=== PATIENT | female | born 1950 | race Caucasian/White ===

== ENCOUNTER 2016-09-20 02:34 | Inpatient (IN) | payer OTHER, MEDICAID ==
[~2016-09-20] VITALS: Ht 152.4 cm; Wt 73.7 kg
--- NOTE | 2016-09-20 02:50 | NUR ---
REC'D A 66 Y/O F BIB FAMILY FOR C/C OF EPIGASTRIC ABD PAIN THAT BEGAN AT 0100. PT STS X4 EPISODES OF VOMITING. PT SPEAKS SOFTLY IN CLEAR AND COMPLETE SENTENCES, RESPIRATIONS EVEN AND UNLABORED. AAOX4. NAD. MSE COMPLETED BY DR RUIZ.
--- NOTE | 2016-09-20 03:07 | NUR ---
XRAY AT BEDSIDE.
[2016-09-20 03:12] LABS: CALCIUM 8.5 mg/dL (8.5-10.1); CARBON DIOXIDE 32.4 mmol/L (21-32); CHLORIDE SERUM 107 mmol/L (98-107); CREATININE SERUM 0.7 mg/dL (0.6-1.0); GFR1 > 60 mL/min; GLUCOSE SERUM 140 mg/dL (74-106); POTASSIUM SERUM 3.5 mmol/L (3.5-5.1); SODIUM SERUM 145 mmol/L (136-145)
[2016-09-20 03:15] LABS: BASOPHIL % 1.5 % (0-2); PLATELET COUNT 196 x10^3mcL (130-400); RED CELL DISTRIBUTION WIDTH 12.6 % (11.5-14.5)
[2016-09-20 03:17] LABS: ALBUMIN 3.6 g/dL (3.4-5.0); ALKALINE PHOSPHATASE 83 U/L (46-116); ALT/SGPT 32 U/L (14-59); AST/SGOT 31 U/L (15-37)
[2016-09-20 03:21] LABS: AMYLASE 381 U/L (25-115); LIPASE 6062 IU/L (73-393)
--- NOTE | 2016-09-20 04:22 | NUR ---
AWOKE PT TO ASK HOW SHE IS FEELING AND PT STS "BETTER."
--- NOTE | 2016-09-20 05:27 | NUR ---
MEDICATED PT ORDERED, SEE EMAR.
--- NOTE | 2016-09-20 05:36 | NUR ---
XRAY AT BEDSIDE.
--- NOTE | 2016-09-20 06:16 | NUR ---
ATTEMPTED TO GIVE REPORT TO MED SURG AND WAS INFORMED THERE IS NO NURSE THAT I COULD GIVE REPORT TOO AND THAT ED DAY SHIFT WILL HAVE TO GIVE REPORT.
--- NOTE | 2016-09-20 07:04 | NUR ---
PT REPORT GIVEN TO LUIS DANIEL CHARGE NURSE.
--- NOTE | 2016-09-20 07:15 | NUR ---
RECEIVED PT FROM NIGHT NURSE. PT AWAKE AOX4, RESP EVEN AND UNLABORED, RA. VS STABLE. NAD NOTED. PT DAUGHTER AT BEDSIDE
[2016-09-20 07:21] LABS: CHOLESTEROL/HDL RATIO 3.9; MAGNESIUM 2.3 mg/dL (1.8-2.4); PHOSPHOROUS 4.5 mg/dL (2.5-4.9)
[2016-09-20 07:27] LABS: T3 TOTAL 1.33 ng/mL
[2016-09-20 07:32] LABS: FREE T4 0.92 ng/dL (0.76-1.46); FREE THYROXINE INDEX 2.3 ug/dL (1.4-4.5); T4(THYROXINE) 7.3 ug/dL (4.7-13.3)
--- NOTE | 2016-09-20 07:55 | NUR ---
RECEIVED PT FROM ED. AAOx4; DANISH SPEAKING: DISPLAYS GENERALIZED WEAKNESS; AMBULATORY; ON ROOM SATTING AT 97%; C/O ABDOMINAL PAIN; IV TO THE LAC 22G PATENT AND FLUSHING WELL WITHOUT PAIN; ON TELE #[address] HR 124; LAST REPORTED BM WAS 09/19/16, STOOL WAS REGULAR; SKIN INTACTED; GOOD CIRCULATION WITH NO APPARENT EDEMA NOTED; CALM AND COOPERATIVE; CALL LIGHT WITHIN REACH. ENCOURAGED TO CALL FOR ASSISTANCE WHEN NEEDED. WILL CONTINUE TO MONITOR
[2016-09-20 07:58] VITALS: BP 127/70
[2016-09-20 11:17] LABS: UA SPECIFIC GRAVITY 1.015 (1.005-1.035); microscopic required? YES; urine erythrocyte NEGATIVE (NEGATIVE)
[2016-09-20 11:30] LABS: AMPHETAMINE QUAL UR NONE DETECTED (NEG <=1000)
--- NOTE | 2016-09-20 13:10 | NUR ---
PT LEFT FOR PROCEDURE. PT WAS SALINE LOCKED. CONSENT WAS SIGNED WITH SERGEANT OF OFFICERS PHONE AND CHECKLIST COMPLETED. REPORT WAS GIVEN TO O.R. NURSE. WILL CONTINUE TO MONITOR
[2016-09-20 13:48] VITALS: BP 121/44
--- NOTE | 2016-09-20 15:29 | NUR ---
PT RETURNED FROM PROCEDURE. STILL LETHARGIC. LATEST VITALS: BP 115/63 MAP 86, HR 75, O2SAT 95 ON 2L, TEMP 98.4, RESP 16. 4 BAND AIDS TO THE ABD WITH VINNIE IN PLACE WITH APPROXIMATELY 10ML OF SEROSANGINOUS DRAINAGE. IV ABX STARTED AND INFUSING WELL. FAMILY AT BEDSIDE. CALL LIGHT WITHIN REACH. WILL CONTINUE TO MONITOR
[2016-09-20 16:52] VITALS: BP 115/63
--- NOTE | 2016-09-20 18:18 | NUR ---
PT RESTING IN BED EYES CLOSED. STILL SLIGHTLY LETHARGIC. FAMILY AT BEDSIDE. IV FLUIDS REFRESHED AND INFUSING WELL. NO APPARENT SIGNS OF ACUTE DISTRESS NOTED AT THIS TIME. CALL LIGHT WITHIN REACH. WILL CONTINUE TO MONITOR
--- NOTE | 2016-09-20 20:15 | NUR ---
PATIENT ASLEEP IN BED BUT EASILY AROUSABLE TO NAME CALLING. YAKUT SPEAKING ONLY. RESPIRATION EVEN AND UNLABORED, ON ROOM AIR. ONGOING 0.9% NS AT 130 CC/HR INFUSING WELL AT THE LEFT ANTECUBITAL AREA. S/P LAP CHOLECYSTECTOMY TODAY, SURGICAL INCISION TO ABDOMEN COVERED WITH BANDAID X4, VINNIE DRAIN TO RT SIDE INTACT WITH SEROSANGUINOUS DRAINAGE. VENOUS ULCER TO L INTERIOR FOOT COVERED WITH D/I DRESSING. GENERALIZED WEAKNESS NOTED. VOIDING FREELY WITHOUT DIFFICULTY. DENIES PAIN AT THIS TIME. ON TELE #38. WILL CONTINUE TO MONITOR.
[2016-09-20 21:29] VITALS: BP 119/61
[2016-09-21 06:20] VITALS: BP 121/68
[2016-09-21 06:29] LABS: BASOPHIL % 0.3 % (0-2); PLATELET COUNT 151 x10^3mcL (130-400); RED CELL DISTRIBUTION WIDTH 13.5 % (11.5-14.5)
[2016-09-21 06:35] LABS: CALCIUM 8.4 mg/dL (8.5-10.1); CARBON DIOXIDE 20.6 mmol/L (21-32); CHLORIDE SERUM 110 mmol/L (98-107); CREATININE SERUM 0.8 mg/dL (0.6-1.0); GFR1 > 60 mL/min; GLUCOSE SERUM 116 mg/dL (74-106); PHOSPHOROUS 3.8 mg/dL (2.5-4.9); POTASSIUM SERUM 4.2 mmol/L (3.5-5.1); SODIUM SERUM 143 mmol/L (136-145)
[2016-09-21 06:38] LABS: AMYLASE 388 U/L (25-115)
--- NOTE | 2016-09-21 06:40 | NUR ---
PATIENT DOZING ON AND OFF. RESPIRATION EVEN AND UNLABORED. IV SITE NO SIGN OF INFILTRATION. ASSISTED WITH NEEDS. SAFETY OBSERVED. PLACED CALL LIGHT WITHIN REACH AT ALL TIMES. VINNIE DRAIN INTACT.
[2016-09-21 07:35] LABS: LIPASE 4914 IU/L (73-393)
--- NOTE | 2016-09-21 08:00 | NUR ---
RECEIVED PT IN BED ALERT AND ORIENTED X4. BREATHING EVEN AND UNLABORED ON O2 VIA NC AT 2L, NO SOB, ENCOURAGED USE OF INCENTIVE SPIROMETER. DENIES N/V/D. REPORTS PAIN TO OPERATIVE SITE RATED 7/10 ESPECIALLY WITH MOVEMENT. VOIDS FREELY. GENERALIZED WEAKNESS. ENCOURAGED TO AMBULATE. WILL MEDCIATE WITH NORCO ORDERED. INCISIONS TO ABD X4 WITH BANDAIDS CDI. VINNIE DRAIN TO RLQ WITH SEROSANGUINOUS OUTPUT. INSTRUCTED TO USE CALL LIGHT WHEN IN NEED OF ANY ASSISTANCE.
--- NOTE | 2016-09-21 08:30 | NUR ---
NORCO PO GIVEN FOR PTS REPORTS OF PAIN TO R HIP WITH MOVEMENT.
[2016-09-21 08:38] VITALS: BP 113/57
--- NOTE | 2016-09-21 10:30 | NUR ---
PT AMBULATING IN HALLWAY ACCOMPANIED BY FAMILY.
[2016-09-21 13:38] VITALS: BP 116/50
[2016-09-21 17:20] VITALS: BP 126/63
--- NOTE | 2016-09-21 18:20 | NUR ---
PT IS SITTING UPRIGHT IN BED. AMBULATED WITH ASSISTANCE. VINNIE DRAIN EMPTIED OF 50ML OF SEROSANGUINOUS FLUID. VOIDS FREELY. REPORTS HEADACHE DECLINES PHARMACOLOGICAL INTERVENTIONS. DENIES PASSING GAS. FAMILY VISITING AT BEDSIDE. WILL CONTINUE TO MONITOR.
--- NOTE | 2016-09-21 19:52 | NUR ---
RECEIVED PT FROM PREVIOUS SHIFT. PT A/OX4. FAMILY AT BEDSIDE. NO ACUTE DISTRESS. IV PATENT AND INFUSING WELL WITH NO S/S OF INFILTRATION. BANDAIDS X4 TO ABD S/P LAP CIPRIANO- CDI. VINNIE DRAIN TO ABD WITH SEROSANGUINOUS DRAINAGE. CALL LIGHT WITHIN REACH, BED IN LOW POSITION. WILL CONTINUE TO MONITOR.
[2016-09-21 20:57] VITALS: BP 117/65
--- NOTE | 2016-09-22 00:31 | NUR ---
PT RESTING AT THIS TIME IN NO ACUTE DISTRESS. RR EVEN AND UNLABORED. IV PATENT AND INFUSING WELL WILL NO S/S OF INFILTRATION. CALL LIGHT WITHIN REACH, BED IN LOW POSITION, WILL CONTINUE TO MONITOR.
[2016-09-22 05:59] VITALS: BP 137/69
[2016-09-22 06:29] LABS: CALCIUM 8.1 mg/dL (8.5-10.1); CARBON DIOXIDE 28.1 mmol/L (21-32); CHLORIDE SERUM 106 mmol/L (98-107); CREATININE SERUM 0.7 mg/dL (0.6-1.0); GFR1 > 60 mL/min; GLUCOSE SERUM 114 mg/dL (74-106); MAGNESIUM 1.8 mg/dL (1.8-2.4); PHOSPHOROUS 2.2 mg/dL (2.5-4.9); POTASSIUM SERUM 3.7 mmol/L (3.5-5.1); SODIUM SERUM 139 mmol/L (136-145)
--- NOTE | 2016-09-22 07:25 | NUR ---
RECEIVED PT LAYING IN BED ASLEEP. NO APPARENT SIGNS OF ACUTE DISTRESS NOTED. INFORMATION BOARD UPDATED. IV SITE PATENT AND INFUSING WELL. VINNIE DRAIN INTACT. CALL LIGHT WITHIN REACH. WILL CONTINUE TO MONITOR
[2016-09-22 07:32] LABS: BASOPHIL % 0.1 % (0-2); PLATELET COUNT 129 x10^3mcL (130-400); RED CELL DISTRIBUTION WIDTH 13.7 % (11.5-14.5)
[2016-09-22 08:43] VITALS: BP 113/66; BP 149/74
--- NOTE | 2016-09-22 09:38 | NUR ---
PT RESTING IN BED EYES CLOSED. FAMILY AT BEDSIDE. NO APPARENT SIGNS OF ACUTE DISTRESS NOTED. IV INFUSINS WELL. CALL LIGHT WITHIN REACH. WILL CONTINUE TO MONITOR
[2016-09-22] MEDS ORDERED: ACETAMINOPHEN-H1 TA1 PO (10:29)
[2016-09-22] MEDS ORDERED: COLACE100 MG PO (10:30)
[2016-09-22] MEDS ORDERED: MOT800 PO (10:30)
[2016-09-22] MEDS ORDERED: LAC PO (10:31)
[2016-09-22] MEDS ORDERED: KEFLEX250 M1 PO (10:31)
--- NOTE | 2016-09-22 12:17 | NUR ---
PT O2 SAT WITHOUT 2L NC 90%. DR. BURGER AWARE
[2016-09-22 13:04] VITALS: BP 149/74
[2016-09-22 13:25] VITALS: BP 134/62
--- NOTE | 2016-09-22 13:45 | NUR ---
WENT OVER PT TEACHNG AND DISCHARGE INSTRUCTIONS. PT DENIES PAIN. NO APPARENT SIGNS OF ACUTE DISTRESS NOTED AT TIME OF DEPARTURE. IV ACCESS REMOVED, PT TOLERATED WELL. ID BAND DISCARDED IN SHREDDER. PT WAS ESCORTED DOWN BY NURSING STAFF.
== END 2016-09-22 13:56 | disposition home or self-care (01) | DRG 417 ==
LOC: ED 02:34 → DU 05:40 → MU 09-22 09:15
PROVIDERS: Emergency Medicine; Family Medicine; Surgery; ADMIT Family Medicine
PROC: 0FT44ZZ Resection of Gallbladder, Percutaneous Endoscopic Approach (ICD-10-PCS; principal; 2016-09-20 13:00)
DX: K81.0 Acute cholecystitis (principal); K85.10 Biliary acute pancreatitis without necrosis or infection; N39.0 Urinary tract infection, site not specified; I10 Essential (primary) hypertension; R73.03 Prediabetes; I83.024 Varicose veins of left lower extremity with ulcer of heel and midfoot; Z68.31 Body mass index [BMI] 31.0-31.9, adult
CPT/HCPCS: 80307; 83880; 84439; 94150; G0480; J0295; J0690; J0696; J1885; J2175; J2250; J3010; J3490; J7030; Q0092; Q0162

== ENCOUNTER 2017-03-30 02:24 | Emergency (ER) | payer OTHER, MEDICAID ==
[~2017-03-30 02:24] MED LIST: ACETAMINOPHEN-H1 TA1 PO; COLACE100 MG PO; KEFLEX250 M1 PO; LAC PO; MOT800 PO
[2017-03-30 06:49] VITALS: BP 139/86
== END 2017-03-30 06:49 | disposition home or self-care (01) ==
LOC: ED 02:24
DX: M54.32 Sciatica, left side (principal); I82.812 Embolism and thrombosis of superficial veins of left lower extremity; I10 Essential (primary) hypertension; Z88.5 Allergy status to narcotic agent
CPT/HCPCS: J1885; Q0092